=== PATIENT | female | born 1940 | race Caucasian/White ===

== ENCOUNTER → 2018-11-24 | Outpatient (CLI) | payer MEDICARE ==
--- NOTE | 2018-11-24 10:43 | Diagnostic Imaging Report ---
Indication: Neck pain for 3 weeks. Time of exam: 10:27 AM 3 views of the cervical spine were obtained. Curvature and alignment is normal. There is degenerative disc disease C5-6 level with disc space narrowing and marginal spurring. Remaining disc spaces are fairly well-maintained. Odontoid is intact. No fractures are seen. Prevertebral tissues are normal. Impression: C5-6 degenerative disc disease. No other significant abnormality is detected. Dictated by: Dictated on workstation # [id number]
== END ==
LOC: RAD FS 10:15
PROVIDERS: ATTEND Nurse Practitioner Family
DX: M50.322 Other cervical disc degeneration at C5-C6 level (principal)
CPT/HCPCS: 72040